=== PATIENT | female | born 1975 | race Caucasian/White ===

== ENCOUNTER 2023-03-31 13:59 | Emergency (ER) | payer OTHER ==
--- OUTSIDE RECORDS SUMMARY | 2023-03-31 14:02 | XMS REPORT | Continuity of Care Document ---
:1975 Author Organization [facility] t Address [address] [place] [address] Care Team Providers Name Role Phone ShultzJoel balderas DO Attending Clinician Problems This patient has no known problems. Allergies, Adverse Reactions, Alerts Allergy Allergy Status Severity Reaction(s) Onset Inactive Treating Comm ents Source Name Type Date Date Clinician NO KNOWN Drug Active Univers ALLERGIE Class ity of [facility] Social History Social Habit Start Date Stop Date Quantity Comments [facility] Status Start Date Stop Date Source Unknown if ever smoked [facility] Medications Ordered Filled Start Stop Current Ordering Indication Dosage Frequency Signature Comments Components Source Medication Medication Date Date Medication? Clinician (SIG) Name Name ondansetron 2020- No 4mg 4 mg, Slow Univers (ZOFRAN 12-25 IV Push, ity of (PF)) 17:45: 16:55 ONCE, 1 [place] injection 4 00 :00 dose, Wed Med ical mg 12/26/19 at [facility] 124, Routine morpHINE 2019- No 4mg 4 mg, Slow Un jame injection 4 12-25 IV Push, ity of mg 17:45: 16:54 ONCE, 1 [place] 00 :00 dose, Wed Medical 12/26/19 at [facility], STAT clindamycin 2020- No 900mg 900 mg, IV Univers (CLEOCIN) 12-25 Piggyback, ity of injection 17:45: 16:48 [place] 900 [place] :00 dose, Wed Medical 12/26/19 at [facility], ABIDA
Re ason for Anti-Infec tive: Empiric Therapy for Suspected Infection< br>Empiric Therapy Site: Skin / Soft tissue
Duration of therapy: 72 hours
R estricted use approved by: ADC PROVIDER acetaminoph 2019-0 Yes [id number] 1{tbl} Take 1 Univers en-codeine 3-11 tablet by ity of (TYLENOL-CO 00:00: mouth [place] DEINE #3) 00 every 4 Medical 300-30 mg (four) Branch tablet hours as needed for Pain (scale 7-10). ondansetron 2019-0 Yes [id number] 4mg Take 1 Univers 4 mg 3-11 tablet by ity of disintegrat 00:00: mouth [place] ing tablet 00 every 8 Medica l (eight) Branch hours as needed for Nausea and Vomiting (N/V). methylPREDN 2019- Yes [id number] Take by Univers ISolone 3-11 mouth ity of (MEDROL, 00:00: SEE-INSTRU Bright as TERE,) 4 mg 00 CTIONS. Medica l tablets follow Branch package directions sulfamethox 2020- No [id number] 2{tbl} Take 2 Univers azole-trime 3-11 -19 tablets by i ty of thoprim 00:00: 04:59 mouth [place] 800-160 mg 00 :00 every 12 Medic al per tablet (twelve) Branc h hours for 7 days. clindamycin 2020- No [id number] 300mg Take 2 Univers 150 mg 3-11 -19 capsules ity of capsule 00:00: 04:59 by mouth 4 [place] as 00 :00 (four) Medical times Branch daily for 7 days. methylPREDN 2020- No Take by Un jame ISolone 8-20 03-11 mouth ity of (MEDROL, 00:00: 00:00 [place]STRU [place] TERE,) 4 mg 00 :00 CTIONS. Medica l tablets follow Branch package directions Vital Signs Vital Name Observation Time Observation Value Comments Source Systolic blood 2019-12-26 17:00:00 160 [facility] Diastolic blood 2019-12-26 17:00:00 97 mm[facility]Hg[facility] Heart rate 2019-12-26 17:00:00 75 /[facility] Respiratory rate 2019-12-26 17:00:00 18 /min [facility] O[facility] saturation in 2019-12-26 17:00:00 96 /min [facility] Arterial blood by [facility] Pulse oximetry Branch Body temperature 2019-12-26 15:49:00 36.83 [facility] Body height 2019-12-26 15:49:[address] [facility] Body weight 2019-12-26 15:49:[address] [facility] BMI 2019-12-26 15:49:00 51.49 kg/m2 [facility] Procedures Procedure Date / Time Performing Clinician Source Performed CBC WITH DIFFERENTIAL 2019-12-26 16:47:00 Joel Shultz [facility] NOTICE OF PRIVACY 2019-12-26 15:39:52 Doctor Unassigned, No [facility] PRACTICES Name Medical Branch Encounters Start End Encounter Admission Attending Care Care Encounter Source Date/Time Date/Time Type Type Clinicians Facility Department ID 2019-12-26 2019-12-26 Emergency Singer [facility] [id number] Univers 10:51:37 13:26:00 Joel White [id number] i ty [facility] [id number] [facility] [id number] [facility] 084 Branch 2019-12-26 2019-12-26 Emergency X [facility] ERT [id number] Univers 10:40:00 10:40:00 [facility] Results Test Description Test Time Test Comments Results Result Comments Source CBC WITH DIFFERENTIAL 2019-12-26 17:03:00 Test Item Value Reference Range Interpretation Comme nts WBC (test code = 6690-2) See_Comment [A utomated message] The system which ge nerated this result transmit marily reference range: 4.30 - 1 1.10 10*3/?L. The reference r laly was not used to interpr et this result as normal/abnor mal. RBC (test code = 789-8) See_Comment [Au tomated message] The system which ge nerated this result transmit marily reference range: 3.93 - 5 .25 10*6/?L. The reference r laly was not used to interpr et this result as normal/abnor mal. HGB (test code = 718-7) 17.7 g/dL 11.6-15 H HCT (test code = 4544-3) 51.4 % 35.7-45.2 H MCV (test code = 787-2) 102.6 fL 80.6-95.5 H MCH (test code = 785-6) 35.3 pg 25.9-32.8 H MCHC (test code = 786-4) 34.4 g/dL 31.6-35.1 RDW-SD (test code = 67667-8) 44.3 fL 39-49.9 RDW-CV (test code = 788-0) 11.8 % 12-15.5 L PLT (test code = 777-3) See_Comment [Au tomated message] The system which ge nerated this result transmit marily reference range: 166 - 35 8 10*3/?L. The reference range was not used to interpret th is result as normal/abnormal . MPV (test code = 85768-9) 10.0 fL 9.5-12.9 NRBC/100 WBC (test code = See_Comment [ Automated message] The [id number]) system which Rangespan nerated this result transmit marily reference range: 0.0 - 10 .0 /100 WBCs. The reference r laly was not used to interpr et this result as normal/abnor mal. NRBC x10^3 (test code = <0.01 See_Comment [Au tomated message] The [id number]) system which Rangespan nerated this result transmit marily reference range: 10*3/?L. The reference range was not u sed to interpret this result as normal/abnormal . GRAN MAT (NEUT) % (test code 64.8 % = 770-8) IMM GRAN % (test code = 0.40 % [id number]) LYMPH % (test code = 736-9) 25.3 % MONO % (test code = 5905-5) 6.5 % EOS % (test code = 713-8) 2.4 % BASO % (test code = 706-2) 0.6 % GRAN MAT x10^3(ANC) (test 6.83 10*3/uL 1.88-7.09 code = [id number]) IMM GRAN x10^3 (test code = 0.04 10*3/uL 0-0.06 [id number]) LYMPH x10^3 (test code = 2.67 10*3/uL 1.32-3.29 731-0) MONO x10^3 (test code = 0.69 10*3/uL 0.33-0.92 742-7) EOS x10^3 (test code = 0.25 10*3/uL 0.03-0.39 711-2) BASO x10^3 (test code = 0.06 10*3/uL 0.01-0.07 704-7) Lab Interpretation (test Abnormal code = 26437-6) [facility]
[2023-03-31 15:25] LABS: Specific Gravity 1.022 (1.005-1.030)
[2023-03-31 15:27] LABS: Specific Gravity 1.022 (1.005-1.030); Urine Bacteria <20 /HPF (<20); Urine Bilirubin NEGATIVE (Negative); Urine Blood Negative (Negative); Urine Clarity Clear (Clear); Urine Color Yellow (Yellow); Urine Glucose NEGATIVE (Negative); Urine Mucus Slight /HPF (None Seen); Urine Protein TRACE (Negative); Urine RBC <5 /HPF (None Seen); Urine Urobilinogen Normal (Normal); Urine pH 5.5 (5.0-7.0)
--- NOTE | 2023-03-31 15:37 | ER ---
Nurse's Notes [facility] Name: Maggie Marques Age: 47 yrs Sex: Female : 1975 Arrival Date: 03/31/2023 Time: 13:59 Bed 15 Private MD: Diagnosis: Proteinuria, unspecified;Hidradenitis suppurativa Presentation: 03/31 14:21 Chief complaint: Patient states: Pt presenting to the ED for boil under left arm. cm10 patient reports that she has had this before and has to get an I\T\D. Pt reports that it hurts to lift arm. Patient also states that she thinks that she may have a UTI. Coronavirus screen: Vaccine status: Patient reports being unvaccinated. Client denies travel out of the [place] in the last 14 days. At this time, the client does not indicate any symptoms associated with coronavirus-19. Ebola Screen: No symptoms or risks identified at this time. 14:21 Method Of Arrival: Ambulatory cm10 14:24 Initial Sepsis Screen: Does the patient meet any 2 criteria? No. Patient's initial cm10 sepsis screen is negative. Does the patient have a suspected source of infection? No. Patient's initial sepsis screen is negative. Risk Assessment: Do you want to hurt yourself or someone else? Patient reports no desire to harm self or others. Onset of symptoms was March 28, 2023. 14:24 Acuity: DEON 3 cm10 Triage Assessment: 14:27 General: Appears in no apparent distress. uncomfortable, Behavior is calm, cooperative. cm10 Pain: Complains of pain in left axilla Pain currently is 10 out of 10 on a pain scale. Pain began 2-3 days ago. Alleviated by medications, Aggravated by repositioning. 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 - Social history:: Smoking status: Patient reports the use of cigarette tobacco products, smokes one pack cigarettes per day. Screenin:[facility] ED Fall Risk Assessment (Adult) History of falling in the last 3 months, kc6 including since admission No falls in past 3 months (0 pts) Confusion or Disorientation No (0 pts) Intoxicated or Sedated No (0 pts) Impaired Gait No (0 pts) Mobility Assist Device Used No (0 pt) Altered Elimination No (0 pt) Score/Fall Risk Level 0 - 2 = Low Risk Oriented to surroundings, Maintained a safe environment, Educated pt \T\ family on fall prevention, incl call for assistance when getting out of bed, Assessed \T\ reinforced patient's understanding of fall precautions, Hourly rounding (assess needs \T\ fall precautionary measures) done. Abuse screen: Denies threats or abuse. Denies injuries from another. Nutritional screening: No deficits noted. Tuberculosis screening: No symptoms or risk factors identified. Assessment: 14:39 General: Appears in no apparent distress. comfortable, obese, Behavior is calm, kc6 cooperative, appropriate for age. Cardiovascular: Capillary refill < 3 seconds. Respiratory: Airway is patent Trachea midline Respiratory effort is even, unlabored, Respiratory pattern is regular, symmetrical. Derm: Abscess located on left axilla. Vital Signs: 14:24 BP 155 / 84; Pulse 83; Resp 16; Temp 98.8(O); Pulse Ox 96% on R/A; Weight 113.4 kg; cm10 Height 5 ft. 4 in. ; Pain 10/10; 14:24 Body Mass Index 42.91 (113.40 kg, 162.56 cm) cm10 14:24 Pain Scale: Adult cm10 ED Course: 14:02 Patient arrived in ED. im 14:25 Triage completed. cm10 14:26 Sammy Cano MD is Attending Physician. bs3 14:26 Arm band placed on Patient placed in an exam room, on a stretcher. cm10 14:32 Riddhi Garvin, MAGAN is Primary Nurse. kc6 14:40 Patient has correct armband on for positive identification. Bed in low position. Call kc6 light in reach. Side rails up X 1. Adult w/ patient. 15:55 No provider procedures requiring assistance completed. Patient did not have IV access kc6 during this emergency room visit. Administered Medications: 15:55 Drug: Ketorolac IM 30 mg Route: IM; Site: right deltoid; kc6 Medication: 15:55 VIS not applicable for this client. kc6 Outcome: 15:36 Discharge ordered by . bs3 15:55 Discharged to home ambulatory, with significant other. kc6 15:55 Condition: stable 15:55 Discharge instructions given to patient, Instructed on discharge instructions, follow up and referral plans. medication usage, Demonstrated understanding of instructions, follow-up care, medications, Prescriptions given X 4. 15:57 Patient left the ED. kc6 Signatures: Riddhi Garvin RN RN kc6 Sammy Cano MD MD bs3 Garima Benson Clarissa, RN RN cm10
--- NOTE | 2023-03-31 15:37 | EDPHYS ---
Physician Documentation [facility] Name: Maggie Marques Age: 47 yrs Sex: Female : 1975 Arrival Date: 03/31/2023 Time: 13:59 Bed 15 Private MD: ED Physician Sammy Cano HPI: 03/31 15:23 This 47 yrs old Female presents to ER via Ambulatory with complaints of Cyst bs3 in armpit. 15:23 39-year-old female history of chronic cysts in her bilateral armpits presents with bs3 worsening symptoms for the last several days particular in the left side she notes sometimes it is on the right but not on the left she is never followed with dermatology for this nothing seems to make the symptoms better or worse she denies any fevers or chills she does note some dark urine as well on review of systems. 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 - Social history:: Smoking status: Patient reports the use of cigarette tobacco products, smokes one pack cigarettes per day. ROS: 15:23 Constitutional: Negative for fever, chills bs3 15:23 All other systems are negative. Exam: 15:23 Constitutional: This is a well developed, well nourished patient who is awake, alert, bs3 and in no acute distress. Head/Face: Normocephalic, atraumatic. Eyes: Pupils equal round and reactive to light, extra-ocular motions intact. Lids and lashes normal. ENT: mmm, no posterior phyarngeal erythema Neck: Trachea midline, no thyromegaly, no neck stiffness Chest/axilla: Normal chest wall appearance and motion. Nontender with no deformity. she has b/l painful papules and nodules in her b/l axilla, with multiple healing lacerations. Cardiovascular: Regular rate and rhythm with a normal S1 and S2. symmetric pulses in upper extremities Respiratory: Lungs have equal breath sounds bilaterally, clear to auscultation, no respiratory distress MS/ Extremity: Pulses equal, no cyanosis. Neurovascular intact. Full, normal range of motion. Neuro: Awake and alert, GCS 15, oriented to person, place, time, and situation. Cranial nerves II-XII grossly intact. Motor strength 5/5 in all extremities. Sensory grossly intact. Psych: Awake, alert, with orientation to person, place and time. Behavior, mood, and affect are within normal limits. Vital Signs: 14:24 BP 155 / 84; Pulse 83; Resp 16; Temp 98.8(O); Pulse Ox 96% on R/A; Weight 113.4 kg; cm10 Height 5 ft. 4 in. ; Pain 10/10; 14:24 Body Mass Index 42.91 (113.40 kg, 162.56 cm) cm10 14:24 Pain Scale: Adult cm10 MDM: 14:26 Patient medically screened. bs3 15:23 Data reviewed: vital signs, nurses notes. ED course: Patient notes chronic bilateral bs3 lesions in her armpits which have been drained in the past however her history and physical are consistent with hidradenitis suppurativa these generally would not benefit from incision and drainage unless severe discussed with the patient at length we will trial clindamycin steroids and doxycycline advise follow-up with dermatology will evaluate for urinary tract infection. 15:34 ED course: urinalaysis notable for protein, no uti, advised outpatient f/u with pcp for bs3 further workup, possible nephropathy.. 03/31 14:50 Order name: Test, Urine; Complete Time: 15:45 bs3 03/31 14:50 Order name: Urinalysis w/ reflexes; Complete Time: 15:34 bs3 Administered Medications: 15:55 Drug: Ketorolac IM 30 mg Route: IM; Site: right deltoid; kc6 Disposition Summary: 03/31/23 15:36 Discharge Ordered Location: Home bs3 Problem: new bs3 Symptoms: have improved bs3 Condition: Stable bs3 Diagnosis - Proteinuria, unspecified bs3 - Hidradenitis suppurativa bs3 Followup: bs3 - With: Private Physician - When: 1 week - Reason: Recheck today's complaints Discharge Instructions: - Discharge Summary Sheet bs3 - Hidradenitis Suppurativa bs3 - Proteinuria bs3 Forms: - Medication Reconciliation Form bs3 - Thank You Letter bs3 - Antibiotic Education bs3 - Prescription Opioid Use bs3 Prescriptions: - clindamycin phosphate 1 % Topical lotion - apply 1 application by TOPICAL route 2 times per day for 14 days; 60 bs3 milliliter; Refills: 0, Product Selection Permitted - Naprosyn 500 mg Oral Tablet - take 1 tablet by ORAL route 2 times per day take with food; 14 tablet; Refills: bs3 0, Product Selection Permitted - Doxycycline Hyclate 100 mg Oral Tablet - take 1 tablet by ORAL route every 12 hours; 20 tablet; Refills: 0, Product bs3 Selection Permitted - Prednisone 20 mg Oral Tablet - take 2 tablets by ORAL route once daily for 5 days; 10 tablet; Refills: 0, bs3 Product Selection Permitted Signatures: Dispatcher [employer] Riddhi Rodriguez RN RN kc6 Sammy Cano MD MD bs3 Lulú Plascencia RN RN cm10
[2023-03-31] MEDS ORDERED: KETOROLAC 30 MG/ML INJ ONE (15:58)
[2023-03-31 16:35] VITALS: BP 155/84; TEMP 98.8; O2SAT 96
== END 2023-03-31 15:57 | disposition home or self-care (01) ==
LOC: ER 13:59
DX: R80.9 Proteinuria, unspecified (principal); L73.2 Hidradenitis suppurativa; F17.210 Nicotine dependence, cigarettes, uncomplicated
CPT/HCPCS: 81001; 81025; 96372; 99284